=== PATIENT | female | born 1995 ===

== ENCOUNTER 2021-04-14 15:17 | Outpatient (CLI) | payer OTHER | END 2021-04-14 16:50 | disposition home or self-care (01) | LOC: PRENATAL 15:17 | PROVIDERS: ATTEND Obstetrics & Gynecology Maternal & Fetal Medicine | DX: O35.0XX1 Maternal care for (suspected) central nervous system malformation in fetus, fetus 1 (principal); O35.3XX1 Maternal care for (suspected) damage to fetus from viral disease in mother, fetus 1; O98.512 Other viral diseases complicating pregnancy, second trimester; Z36.89 Encounter for other specified antenatal screening; Z3A.25 25 weeks gestation of pregnancy ==

== ENCOUNTER 2021-06-22 11:15 | Outpatient (CLI) | payer OTHER | END 2021-06-22 12:30 | disposition home or self-care (01) | LOC: PRENATAL 11:15 | PROVIDERS: ATTEND Obstetrics & Gynecology Maternal & Fetal Medicine | DX: O26.843 Uterine size-date discrepancy, third trimester (principal); O41.03X1 Oligohydramnios, third trimester, fetus 1; O36.8131 Decreased fetal movements, third trimester, fetus 1; O36.5931 Maternal care for other known or suspected poor fetal growth, third trimester, fetus 1; Z36.89 Encounter for other specified antenatal screening; Z3A.34 34 weeks gestation of pregnancy ==